=== PATIENT | female | born 1975 | race Caucasian/White ===

== ENCOUNTER 2024-12-10 10:14 | Outpatient (AMB) | payer OTHER, SELFPAY ==
--- NOTE | 2024-12-10 10:16 | MHC.PC.OV ---
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 Allergies No Known Allergies Allergy (Verified 12/10/24 10:18) Medication List - Last Reconciled 12/10/24 by Yamilet Vasquez MD albuterol sulfate 90 mcg/actuation 2 puffs inhalation Q6H PRN Tobacco use date assessed: 12/10/24 Dental Screening Dental Screen Date: 12/10/24 Did you have a dental visit in the last 12 months?: Yes Did you have a dental problem in the last 6 months where you did not have access to dental care?: No Was dental information given to patient?: Patient has dentist [facility] Medical History (Updated 12/10/24 @ 10:55 by Yamilet Vasquez MD) Hx of screening mammography Normal pelvic exam Annual physical exam Surgical History (Updated 12/10/24 @ 11:17 by Yamilet Vasquez MD) Hx of colonoscopy H/O rhinoplasty Family History Father Hypertension Diabetes Substance use disorder Mother Lung transplant recipient Autoimmune disorder Brother Mental health disorder MS (multiple sclerosis) Social History Household Members Other:: , 2 daughters (15.17), 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 1. Little interest or pleasure in doing things: not at all 2. Feeling down, depressed, or hopeless: not at all 3. Trouble falling or staying asleep, or sleeping too much: not at all 4. Feeling tired or having little energy: not at all 5. Poor appetite or overeating: not at all 6. Feeling bad about yourself - or that you are a failure or have let yourself or your family down: not at all 7. Trouble concentrating on things, such as reading the newspaper or watching television: not at all 8. Moving or speaking so slowly that other people could have noticed. Or the opposite - being so fidgety or restless that you have been moving around a lot more than usual: not at all 9. Thoughts that you would be better off or of hurting yourself in some way: not at all Total score: 0 Depression Screening Interpretation: Negative Depression Screening Done: Yes 10217 - PHQ-9 Billing: Yes Source: Developed by Drs. Nithin Maki, Ramila Mcdonnell, Giancarlo Tiwari and colleagues, with an educational yolis from [employer]. Thrive Questionnaire Date Thrive assessed: 12/10/24 I am a: Patient What is your living situation today?: I have a steady place to live Within the past 12 months, did the food you bought not last and you didn't have the money to get more?: Never true Within the past 12 months, did you worry whether your food would run out before you got money to buy more?: Never true Do you have trouble paying for medicines?: No Do you have trouble getting transportation to medical appointments?: No Do you have trouble paying your heating and electricity bill?: No Do you have trouble taking care of your child, family member or friend?: No Do you have trouble with day-to-day activities such as bathing, preparing meals, shopping, managing finances, etc.?: No Are you currently unemployed and looking for a job?: No Are you interested in more education?: No Please select the resources that you would like help with: None Currently or been in a relationship where the following occur: No concerns reported THRIVE Score: 0 AUDIT C Alcohol Use Questionnaire (AUDIT-C) 1. How often do you have a drink containing alcohol?: Never 3. How often do you have six or more drinks on one occasion?: Never Total Score: 0 HUDSON-7 AMB Questionnaire HUDSON-7 Date HUDSON - 7 assessed: 12/10/24 Feeling nervous, anxious, or on edge: 0 = Not at all Not being able to stop or control worryin = Not at all Worrying too much about different things: 0 = Not at all Trouble relaxin = Not at all Being so restless that it is hard to sit still: 0 = Not at all Becoming easily annoyed or irritable: 0 = Not at all Feeling afraid as if something awful might happen: 0 = Not at all Total HUDSON-7 score (0-4 normal; 5-9 mild; 10-14 moderate; 15-21 severe): 0 Source: Developed by Drs. Nithin Maki, Ramila Mcdonnell, Giancarlo Tiwari and colleagues, with an educational yolis from [employer]. HUDSON-7 Assessment Billing HUDSON-7 Assessment Tool: HUDSON-7 Assessment 72192 Review of Systems Const All systems reviewed & are unremarkable except as noted in HPI and below Eyes Reports no additional complaints ENT Reports no additional complaints Card Reports no additional complaints Resp Reports no additional complaints GI Reports no additional complaints Reports no additional complaints Physical exam (Primary Care) Vital Signs: Last Vital Signs Temp 98.7 F 12/10/24 10:18 Pulse 63 12/10/24 10:18 Resp 18 12/10/24 10:18 BP 114/70 12/10/24 10:18 Pulse Ox 97 12/10/24 10:18 Oxygen Delivery Method Room Air 12/10/24 10:18 BMI result Body Mass Index 30.5 Tobacco/Smoking Status: Tobacco use Status Tobacco use date assessed 12/10/24 12/10/24 10:27 Patient Tobacco Use Status Never used Tobacco 12/10/24 10:59 e-Cigarette/Vaping Use Never Used 12/10/24 10:59 Depression Screening Interpretation: Negative Thrive Assessment: Date of Thrive Assessment Date Thrive assessed 12/10/24 12/10/24 10:46 Currently or been in a relationship where the following occur: No concerns reported Const General: no acute distress HENMT Head: Yes normal to inspection Ears: TM's normal bilaterally General nose exam: Normal external nose present Extrem General: Yes no clubbing, cyanosis or edema Coding Level of Care Code New Pt Prev Care 40-64y(50160) Diagnoses Hx of colonoscopy Z98.890 Annual physical exam Z00.00 Additional Codes HUDSON-7 Assessment Billing - HUDSON-7 Assessment Tool: HUDSON-7 Assessment 69575 ([id number]) PHQ-9 - 00730 - PHQ-9 Billing: Yes ([id number]) Assessment & Plan Assessment & Plan (1) Hx of colonoscopy: Comment: polyps [address] [facility] [address] Prather repeat 5 yrs Code(s): Z98.890 - Other specified postprocedural states Category: Surgical Plan: f/u GI (2) Annual physical exam: Code(s): Z00.00 - Encounter for general adult medical examination without abnormal findings Category: Medical Plan: Well-balanced diet regular physical activity discussed with the patient. 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 Patient will return for fasting blood work Orders: Orders Lipid Panel Today Z00.00 - Encounter for general adult medical examination without abnormal findings Comprehensive [place]. Panel Fast Today Z00.00 - Encounter for general adult medical examination without abnormal findings Vitamin D 25-OH Total Today Z00.00 - Encounter for general adult medical examination without abnormal findings Complete Blood Count Auto Diff Today Z00.00 - Encounter for general adult medical examination without abnormal findings TSH reflex Free T4 Today Z00.00 - Encounter for general adult medical examination without abnormal findings UA w Microscopic Today Z00.00 - Encounter for general adult medical examination without abnormal findings
[2024-12-10 10:18] VITALS: BP 114/70; PULSE 63; RESP 18; TEMP 37.1; O2SAT 97; BMI 30.5
--- OUTSIDE RECORDS SUMMARY | 2024-12-10 11:05 | XMS_ITS | Continuity of Care Document ---
Author Name [facility] Organization [facility] Care Team Providers [employer] Name Role Phone [facility] Unavailable Unavailable Problems Combined list of problems from Department of Defense and Veterans Affairs facilities. It does not include entries that were removed or entered in error. Problem Status Onset Date Problem Type Date of Resolution Comments Source Chronic pain syndrome (SNOMED CT 003113709) Active 014 Condition Unknown Organization Chronic pain syndrome (SNOMED CT 405673357) Active Condition [facility] MYALGIA AND MYOSITIS Active Condition DoD joint pain fingers Active Condition DoD COMMON COLD Inactive Condition DoD SEBORRHEIC DERMATITIS Inactive Condition DoD SOMATIC DYSFUNCTION OF SACRUM Active Condition DoD SOMATIC DYSFUNCTION OF LUMBAR REGION Active Condition pt responded w ell to treatment today. MFR, HVLA, and ME performed. educated pt on exercises (handout given) and ways to help on plane. use motrin as needed. f/u with her new PCM as needed for pain. [facility] Cervical Pap Smear Active Condition DoD visit for: exam Active Condition Normal exam today, instructed in self-breast exam; f/u annual/prn [facility] NONALLOPATHIC LESIONS SACRAL Active Condition DoD NONALLOPATHIC LESIONS PELVIC Active Condition evaluation an d treatment with OMT done today with first visit. MFR, ME, and HVLA was done with good results. due to the chronicitiy of the problem pt likely will need few visits and recommend that she comes in 1-2wks. will be sore so can take motrin or tylenol for soreness DoD SACROILIAC REGION SPRAIN Active Condition pt with SI dysfunction. place consult to OMT and will have pt add flexeril to motrin. use and side effects d/w pt. DoD PREG FALSE LABOR ANTEPARTUM COND / PRIOR COMPLICATED DELIV Active Condition Possible early labor; advised pt to walk and return if contractions increase in intensity and/or frequency within next 2-3 hours. DoD LOW IMPLANTATION OF PLACENTA Active Condition U/S today with clear cervical os; resolved. EFW 50th percentile today DoD Supervision Of Normal First Inactive Condition Reassuring maternal/ status currently [facility] Vaccines Prophylactic Need Against Influenza Inactive Condition DoD ASYMPTOMATIC BACTERURIA Active Condition will check for eradication/NORY DoD NORMAL CHECKUP - SECOND TRIMESTER Inactive Condition Isolated elevat ed systolic BP normal on manual; neg proteinuria. Do not suspect PIH, but reviewed precautions with patient. Will check GTT this week due to glucose in urine. Will repeat u/s in 3rd trimester to follow low-lying placenta. [facility] lower back pain Active Condition mild disk dysfunction likely.Goals: pt education - achieved today, reduce pain to allow painfree bending and sitting - 4 weeks, reduce physical stresses of - 9 months.Plan: HEP of sitting with lumbar roll, extension in standing and prone, knees to chest and rotations left and right and pelvic tilts. Pt provided handouts and instructions in all. DoD SCIATICA Active Condition Recommende d stretching, pool exercises, and yoga. Will have pt see physical therapy as well. No neuro signs/sx currently [facility] NORMAL CHECKUP - INITIAL Active Condition EDC 06/22/07 by Enrique ZAMBRANO and scan today DoD bloating Inactive Condition No signs/s x of pathologic etiology, will treat symptomatically DoD visit for: administrative purpose Active Condition Pt encounter linked to original appt time to allow for correct coding purposes. [facility] Ed Initial Visit Description Of Care Plan Active Condition No other concer ns at this time. Patient asked to follow up as scheduled with the provider for New OB medical screen. [facility] Patient Ed Facilitate Preg Discuss Timing Of Peak Fertility Inactive Condition Discussed strategies for timing intercourse; ovulation kits given; rec trial of BBT and HO given. Complete labs today; Ordered semen anaylsis for husban.F/u in 3-4 months for re-eval; if no success; will refer to OB for eval. [facility] FATIGUE Active Condition Usure of etiology; discussed mild depression, but will follow before deciding if treatment needed. F/u for re-eval DoD VERTIGO Active Condition Trial of m eclizin and HO on excersises for vertigo provided DoD MIGRAINE HEADACHE Active Condition Trial of zomig at onset. Will re-eval in 1 month DoD cough Inactive Condition secondary to prior viral infection that has since resolved DoD FOLLICULITIS Active Condition Rec. to pical treatment for now. If no better, will start oral abx. [facility] ROUTINE GYNECOLOGICAL EXAM WITH CERVICAL PAP SMEAR Active Condition Rec. starting P NV since desiring to become . Discussed diet/excersise. Rec. lab test. F/u in 6 months if still not for re-eval. Discussed timing strategies, etc. DoD pain in the leg (below the knee) Active Condition May represe nt restless leg syndrome, alleved well with NSAIDSper patient. Will prescribe trial of Feldene (compliance is good) and followup in one month. [facility] Allergies, Adverse Reactions, Alerts Combined list of allergies from Department of Defense and Veterans Affairs facilities. It does not include entries that were removed or entered in error. Substance Category Reaction Severity Reaction type Status Date Reported Comments Source NO OUTPUT FOR NCID [id number] Drug allergy (disorder) active 09/04/2007 [facility] Immunizations Combined list of available immunizations from the Department of Defense and Veterans Affairs facilities. Immunization Series Date Given Administered By Site Reaction Lot Number CVX Code Drug Oncology Nurse Status Comments Source influenza virus vaccine, whole virus 1 2012 BRENDA JONES [id number] 4P 16 [employer]. (NOV) complet ed influenza virus vaccine, whole virus [facility] influenza virus vaccine, live, attenuated, for intranasal use 1 2011 ALISHA CEDEÑO [id number] [employer] (MED) complet ed influenza virus vaccine, live, attenuate d, for intranasa l use DoD influenza virus vaccine, live, attenuated, for intranasal use 1 2009 CHARLES CARMONA [id number] [employer] (MED) complet ed influenza virus vaccine, live, attenuate d, for intranasa l use DoD influenza virus vaccine, live, attenuated, for intranasal use 1 2007 HANNY MCCARTY [id number] 111 [employer] (MED) complet ed influenza virus vaccine, live, attenuate d, for intranasa l use DoD influenza virus vaccine, split virus (incl. purified surface antigen)-reti red CODE 1 2006 Unknown, Provider [id number] [employer] ([facility]) complet ed influenza virus vaccine, split virus (incl. purified surface antigen)- retired CODE DoD Vital Signs Combined list of inpatient and outpatient Vital Signs from Department of Defense and Veterans Affairs, ranging from 12 months to all on record, depending upon the facility. Vital Sign Value Date Comments Source Systolic Blood Pressure 117 mm[Hg] 07/25/19 12 10:36:59 [facility] More [facility] [employer] Diastolic Blood Pressure 69 mm[Hg] 07/25/2011 10:36:59 [facility] or More [facility] [employer] Systolic Blood Pressure 134 mm[Hg] 07/18/19 14 14:54:46 [facility] More [facility] [employer] Diastolic Blood Pressure 65 mm[Hg] 07/17/2013 14:54:46 One or More [facility] Facilities [employer] Encounters Combined list of: 1) Encounters from Department of Veterans Affairs facilities going backup to the last 18 months, not all VA inpatient encounters are included; 2) Encounters from the Department of [facility] facilities going backup to 280 months. Location Location Details Encounter Type Encounter Number Reason For Visit Attending Provider ADM Date DC Date Status Disposition Source [facility] OUTPATIENT [id number] lower leg pain DEVIKA KEARNEY 11/07 [facility]ased w/o Limitations [facility] OUTPATIENT [id number] repeat pap SEDA ACEVEDO 03/27 [place] w/o Limitations [facility] [facility] OUTPATIENT [id number] persist ant cough DENA STANLEY 06/05 Released w/o Limitations [facility] [place] [facility] OUTPATIENT [id number] DIZINES S AND NAUSEA SEDA ACEVEDO 06/26 [place] w/o Limitations [facility] [place] [facility] OUTPATIENT [id number] talk about getting pregnan t SEDA ACEVEDO 07/20 [place] w/o Limitations [facility] [place] [facility] OUT[facility] [id number] nob MAEVE Cyr 10/17 [place] w/o Limitations [facility] TELE CONSULT [id number] notify pt of med in pharmac y MAEVE LIZARRAGA 10/23 [facility] [facility] OUTPATIENT [id number] TRISTA Banks 12/07 Rele[place] w/o Limitations [facility] OUTPATIENT [id number] DEMI NORIEGA 12/15 Rele[place] w/o Limitations [facility] OUTPATIENT [id number] TRISTA Sims 01/08 Released w/o Limitations [facility] TELE CONSULT [id number] test results SONIA PAZ 02/01 [facility] [facility] OUTPATIENT [id number] TRISTA Sims 02/21 [place]/o Limitations [facility] [facility] OUTPATIENT [id number] NICKO Juan 03/07 [place]/o Limitations [facility] [place] [facility] OUTPATIENT [id number] TRISTA Sims 04/09 Released w/o Limitations [facility] OUTPATIENT [id number] TRISTA Sims 05/23 [place]/o Limitations [facility] OUTPATIENT [id number] TRISTA Sims 05/31 Released [place]/o Limitations [facility] OUTPATIENT [id number] TRISTA Sims 06/07 Released w/o Limitations [facility] OUTPATIENT [id number] TRISTA Sims R 06/14 Released w/o Limitations [facility] OUTPATIENT [id number] TRISTA Sims R R 06/20 Released w/o Limitations [facility] TELE CONSULT [id number] NISHANT Wilkinson 06/25 [facility] [facility] OUTPATIENT [id number] R/O Labor TRISTA ASHTON R 06/27 Released w/o Limitations [facility] DIRECT TO [facility] FROM OTHER THAN ER OR [facility] [id number] TRISTA ASHTON R 06/27 [place] [facility] OUTPATIENT [id number] back pain TINA GREENWOOD NMN 07/31 Released w/o Limitations [facility] [facility] OUTPATIENT [id number] walk-in per M.O NEETA MEEHAN 08/13 Released w/o Limitations [facility] [place] [facility] OUTPATIENT [id number] manipul ation MISTIHIKATIE LOPESA NMN 08/13 Released w/o Limitations [facility] [facility] OUTPATIENT [id number] 6 wks post TRISTA ASHTON R 08/15 Released w/o Limitations [facility] OUTPATIENT [id number] manipul ation PATELHINKL E, TINA NMN 08/22 Released w/o Limitations [place] [facility] [facility] [place] [facility] OUTPATIENT [id number] SI joint dysfunc tion PATELHINKL E, TINA NMN 09/03 Released w/o Limitations [place] [facility](Immuniz ation [facility]) OUTPATIENT [id number] flu HANNY MCCARTY Didier 04/16 Released w/o Limitations [facility](Imm unizati on [facility]) [place] [facility] [facility] TELE CONSULT [id number] per SABRINA DENG 03/27 [place] [facility](Immuniz ation NM[facility]) OUTPATIENT [id number] Adult Flu CHARLES CARMONA 04/05 Released w/o Limitations [facility](Imm unizati on NMCP) [facility]) OUTPATIENT [id number] TO/ hair bugs x2days OSWALD ZAMORANO 12/22 Released w/o Limitations [facility]( [facility]) [facility] OUTPAT[facility] [id number] Notes Entered by: FARRUKH CEDEÑO 13 Apr 2012 1023 ------- ------- ------- ------- -- Fluwangst ALISHA CEDEÑO 04/13 Released w/o Limitations [facility] Abdirashid [place] [facility]) OUTPATIENT [id number] ROGER/ SINUS INFECTI ON X1W MANUEL PAZ 06/13 Released w/o Limitations [facility]( [facility]) [facility]) OUTPATIENT [id number] DD/CONS ULT ON ARTHRIT IS/RESEARCH MANAGEMENT ASSOCIATE ALESSIA LEG PAIN MELVIN DANIELS 04/08 Released w/o Limitations [facility]( [facility]) [facility] Team [facility]) OUTPATIENT [id number] DD/TEST RESULTS MELVIN DANIELS 04/23 Released w/o Limitations [facility]( [facility]) [facility] [id number] Notes Entered by: BRENDA JONES 23 Apr 2013 1524 ------- ------- ------- ------- -- BRENDA Rodriguez 04/23 Released w/o Limitations [facility]( [facility]) [facility]) OUTPATIENT [id number] DD/RESEARCH MANAGEMENT ASSOCIATE ALESSIA PAIN IN BOTH LEGS x10Y CONSTAN TLY MELVIN DANIELS 05/28 Released w/o Limitations [facility]( [facility]) [facility]) OUTPATIENT [id number] DD/ ARTHRIT IS MED CHECK MELVIN DANIELS 06/19 Released w/o Limitations [facility]( [facility]) [facility]) OUTPATIENT [id number] DD/LEG PAIN RECHECK MELVIN DANIELS 09/25 Released w/o Limitations [facility]( [facility]) Procedures Combined list of: 1) Procedures from Department of Veterans Affairs facilities going back up to thelast 18 months, not all VA non-surgical procedures are included; 2) All procedures from the Department of Defense facilities. Procedure Procedure Type Code Date Perfomer Comments Sourc e No data available for this section Ambul[facility] ry Pharmacy Influenza Split Virus Vacc Age 3+ Years IM Preservative Free 013 BRENDA JONES [facility] Immunization Administration One Vaccine Immunization Administration One Vaccine 20935 013 BRENDA JONES [facility] Influenza Virus Vaccine Live Intranasal 012 ALISHA CEDEÑO [facility] Immunization Admin By Intranasal / Oral Route One Vaccine Immunization Admin By Intranasal / Oral Route One Vaccine 35904 012 ALISHA CEDEÑO [facility] Influenza Virus Vaccine Live Intranasal 010 SHELIA CARMONAYA Spencer [facility] Immunization Admin By Intranasal / Oral Route One Vaccine Immunization Admin By Intranasal / Oral Route One Vaccine 46735 010 CHARLES CARMONA [facility] Influenza Virus Vaccine Live Intranasal 008 HANNY MCCARTY [facility] Immunization Admin By Intranasal / Oral Route One Vaccine Immunization Admin By Intranasal / Oral Route One Vaccine 43169 008 HANNY MCCARTY Osteopathic Manip Treatment (OMT) 1-2 Body Regions Involved Osteopathic Manip Treatment (OMT) 1-2 Body Regions Involved 93594 008 TINA MURCIA Osteopathic Manip Treatment (OMT) 1-2 Body Regions Involved Osteopathic Manip Treatment (OMT) 1-2 Body Regions Involved 77661 008 TINA MURCIA Obstetrical Services Care Visit Obstetrical Services Care Visit 0503F 008 MOSES [place] Screening papanicolaou smear; obtaining, preparing and conveyance of cervical or vaginal smear to laboratory 008 MOSES [place] Osteopathic Manip Treatment (OMT) 1-2 Body Regions Involved Osteopathic Manip Treatment (OMT) 1-2 Body Regions Involved 20965 008 TINA MURCIA OB Services Antepartum Care Only Subsequent Single Visit OB Services Antepartum Care Only Subsequent Single Visit 0502F 008 [facility]ES [place] Non-Stre Test (___ 0,2) Non-Stress Test (___ 0,2) 03636 008 MOSES [place] Ultrasound Obstetric Limited Evaluation Ultrasound Obstetric Limited Evaluation 01480 008 MOSES [place] OB Services Antepartum Care Only Subsequent Single Visit OB Services Antepartum Care Only Subsequent Single Visit 0502F 008 MOSES [place] OB Services Antepartum Care Only Subsequent Single Visit OB Services Antepartum Care Only Subsequent Single Visit 0502F 008 MOSES ASHTON OB Services Antepartum Care Only Subsequent Single Visit OB Services Antepartum Care Only Subsequent Single Visit 0502F 008 MOSES [place] OB Services Antepartum Care Only Subsequent Single Visit OB Services Antepartum Care Only Subsequent Single Visit 0502F 008 MOSES [place] OB Services Antepartum Care Only Subsequent Single Visit OB Services Antepartum Care Only Subsequent Single Visit 0502F 008 [place] [place] OB Services Antepartum Care Only Subsequent Single Visit OB Services Antepartum Care Only Subsequent Single Visit 0502F 007 [facility] [place] Influenza Split Virus Vaccine Age 3+ Years Intramuscular 007 NICKO BURNS [facility] Immunization Administration One Vaccine Immunization Administration One Vaccine 15597 007 NICKO BURNS [facility] OB Services Antepartum Care Only Subsequent Single Visit OB Services Antepartum Care Only Subsequent Single Visit 0502F 007 [place]ES [place] OB Services Antepartum Care Only Subsequent Single Visit OB Services Antepartum Care Only Subsequent Single Visit 0502F [address]Supervised Services Provision Of Educational Supplies -Supervised Services Provision Of Educational Supplies 43783 007 DEMI JUNG [facility] Physical Medicine Physical Therapy Evaluation Physical Medicine Physical Therapy Evaluation 21053 007 DEMI JUNG Cervical Pap Smear Cervical Pap Smear 26730 10/07 007 MOSES [place] Transabd Ultrasound W/ Exam Single Or First Gestation Transabd Ultrasound W/ Exam Single Or First Gestation 73358 007 MOSES [place] OB Services Antepartum Care Only First Visit, With Report OB Services Antepartum Care Only First Visit, With Report 0500F 007 [place] [place] Pulse Oximetry Pulse Oximetry 09387 007 DENA STANLEY [facility] Cervical Pap Smear Cervical Pap Smear 96202 27/06 006 SEDA ACEVEDO [facility] INFLUENZA VIRUS VACCINE, TRIVALENT, LIVE (LAIV3), FOR INTRANASAL USE 010 [facility] HANDLING AND/OR CONVEYANCE OF SPECIMEN FOR TRANSFER FROM THE OFFICE TO A LABORATORY 009 [facility] INFLUENZA VIRUS VACCINE, TRIVALENT, LIVE (LAIV3), FOR INTRANASAL USE 008 [facility] DETERMINATION OF REFRACTIVE STATE 003 [facility] EXCISION, BENIGN LESION INCLUDING MARGINS, EXCEPT SKIN TAG (UNLESS LISTED ELSEWHERE), TRUNK, ARMS OR LEGS; EXCISED DIAMETER 0.5 CM OR LESS 003 [facility] INFLUENZA VIRUS VACCINE, TRIVALENT (IIV3), SPLIT VIRUS, PRESERVATIVE FREE, 0.5 ML DOSAGE, FOR INTRAMUSCULAR USE 013 [facility] INFLUENZA VIRUS VACCINE, TRIVALENT, LIVE (LAIV3), FOR INTRANASAL USE 012 [facility] INFLUENZA VIRUS VACCINE, TRIVALENT (IIV3), SPLIT VIRUS, PRESERVATIVE FREE, 0.5 ML DOSAGE, FOR INTRAMUSCULAR USE 011 DoD OSTEOPATHIC MANIPULATIVE TREATMENT (OMT); 1-2 BODY REGIONS INVOLVED 008 [facility] OSTEOPATHIC MANIPULATIVE TREATMENT (OMT); 1-2 BODY REGIONS INVOLVED 008 [facility] SCREENING PAPANICOLAOU SMEAR; OBTAINING, PREPARING AND CONVEYANCE OF CERVICAL OR VAGINAL SMEAR TO LABORATORY 008 [facility] OSTEOPATHIC MANIPULATIVE TREATMENT (OMT); 1-2 BODY REGIONS INVOLVED 008 [facility] OTHER ARTIFICIAL RUPTURE OF MEMBRANES 008 [facility] INJECTION OF RH IMMUNE GLOBULIN 008 [facility] POSTOPERATIVE FOLLOW-UP VISIT, NORMALLY INCLUDED IN THE SURGICAL PACKAGE, INDICATE THAT EVALUATION & MANAGEMENT SERVICE WAS PERFORMED DURING A POSTOPERATIVE PERIOD REASON RELATED ORIGINAL PROCEDURE 008 DoD POSTOPERATIVE FOLLOW-UP VISIT, NORMALLY INCLUDED IN THE SURGICAL PACKAGE, INDICATE THAT EVALUATION & MANAGEMENT SERVICE WAS PERFORMED DURING A POSTOPERATIVE PERIOD REASON RELATED ORIGINAL PROCEDURE 008 [facility] VAGINAL DELIVERY ONLY (WITH OR WITHOUT EPISIOTOMY AND/OR FORCEPS); 008 [facility] SUBSEQ CARE VISIT () [EXCLS:PATIENTS WHO ARE SEEN FOR A CONDITION UNREL TO / CARE (EG,AN UP RESPIR INFECT;PATIENTS SEEN FOR CONSULTATION ONLY,NOT FOR CONT CARE)] [facility] SUBSEQ CARE VISIT () [EXCLS:PATIENTS WHO ARE SEEN FOR A CONDITION UNREL TO / CARE (EG,AN UP RESPIR INFECT;PATIENTS SEEN FOR CONSULTATION ONLY,NOT FOR CONT CARE)] [facility] SUBSEQ CARE VISIT () [EXCLS:PATIENTS WHO ARE SEEN FOR A CONDITION UNREL TO / CARE (EG,AN UP RESPIR INFECT;PATIENTS SEEN FOR CONSULTATION ONLY,NOT FOR CONT CARE)] [facility] SUBSEQ CARE VISIT () [EXCLS:PATIENTS WHO ARE SEEN FOR A CONDITION UNREL TO / CARE (EG,AN UP RESPIR INFECT;PATIENTS SEEN FOR CONSULTATION ONLY,NOT FOR CONT CARE)] [facility] SUBSEQ CARE VISIT () [EXCLS:PATIENTS WHO ARE SEEN FOR A CONDITION UNREL TO / CARE (EG,AN UP RESPIR INFECT;PATIENTS SEEN FOR CONSULTATION ONLY,NOT FOR CONT CARE)] [facility] SUBSEQ CARE VISIT () [EXCLS:PATIENTS WHO ARE SEEN FOR A CONDITION UNREL TO / CARE (EG,AN UP RESPIR INFECT;PATIENTS SEEN FOR CONSULTATION ONLY,NOT FOR CONT CARE)] [facility] SUBSEQ CARE VISIT () [EXCLS:PATIENTS WHO ARE SEEN FOR A CONDITION UNREL TO / CARE (EG,AN UP RESPIR INFECT;PATIENTS SEEN FOR CONSULTATION ONLY,NOT FOR CONT CARE)] [facility] INFLUENZA VIRUS VACCINE, TRIVALENT (IIV3), SPLIT VIRUS, 0.5 ML DOSAGE, FOR INTRAMUSCULAR USE [facility] SUBSEQ CARE VISIT () [EXCLS:PATIENTS WHO ARE SEEN FOR A CONDITION UNREL TO / CARE (EG,AN UP RESPIR INFECT;PATIENTS SEEN FOR CONSULTATION ONLY,NOT FOR CONT CARE)] [facility] SUBSEQ CARE VISIT () [EXCLS:PATIENTS WHO ARE SEEN FOR A CONDITION UNREL TO / CARE (EG,AN UP RESPIR INFECT;PATIENTS SEEN FOR CONSULTATION ONLY,NOT FOR CONT CARE)] [facility] PHYSICAL THERAPY EVALUATION [facility] CYTOPATHOLOGY, SMEARS, CERVICAL OR VAGINAL, UP TO THREE SMEARS; SCREENING BY WIRE HARNESS ASSEMBLER UNDER PHYSICIAN SUPERVISION [facility] NONINVASIVE EAR OR PULSE OXIMETRY FOR OXYGEN SATURATION; SINGLE DETERMINATION [facility] CYTOPATHOLOGY, SMEARS, CERVICAL OR VAGINAL, UP TO THREE SMEARS; SCREENING BY WIRE HARNESS ASSEMBLER UNDER PHYSICIAN SUPERVISION [facility] COLPOSCOPY OF THE CERVIX INCLUDING UPPER/ADJACENT VAGINA; [facility] SCREENING PAPANICOLAOU SMEAR; OBTAINING, PREPARING AND CONVEYANCE OF CERVICAL OR VAGINAL SMEAR TO LABORATORY [facility] REPLACEMENT OF CONTACT LENS DoD Social History Combined list of available smoking, tobacco, and other social history from [facility] facilities. Social History Type Response Date Comment Sour e Sex Representation Female (finding) 06/13/2023 Unknown Organization Sexual Orientation [facility] Gender identity [facility] This section is an empty social history section. [facility] Assessment and Plan Combined list of future care activities from [facility] Defense and [facility] facilities (e.g., assessment and plan notes, appointments, orders, and referrals). Additional future care activities may be listed in the Plan of Care section. Result Assessment and Plan Date Source Assessment and Plan No data available for this section 12/10/2024 [facility] Functional Status Combined list of recent functional and cognitive assessments recorded at [facility] Functional [place] Measurement (FIM) Scale: 1 = Total Assistance (Subject = 0% +), 2 = Maximal Assistance (Subject = 25% +), 3 = Moderate Assistance (Subject = 50% +), 4 = Minimal Assistance (Subject = 75% +), 5 = Supervision, 6 = Modified [place] (Device), 7 = Complete [place] (Timely, Safely). Assessment Date/Time Source Assessment Type Assessment Skill Assessment Score Assessment Details No data available for this section
--- OUTSIDE RECORDS SUMMARY | 2024-12-10 11:06 | XMS_ITS | Data Portability ---
Author Organization [facility] [address] Address [address] [place] [address] Assessment No assessment recorded. Plan of Treatment Reminders Order Date Submit Date Provider Last Modified By Organization Details Last Modified Time Details Appointments None recorded. Lab None recorded. Referral None recorded. Procedures None recorded. Surgeries None recorded. Imaging None recorded. Medication Orders prednisone 10 mg tablet 2022 023 [id number], [address], [place], [id number], 3 13:30:08 hydroxyzine HCl 25 mg tablet 2022 023 [facility][id number], [address], [place], [id number], 3 13:30:10 Patient TargetsNo targets recorded. Patient Instructions Encounter Date Encounter Id Patient Instructions Last Modified By Organization Details Last Modified Time 11/25/2022 [id number] hives: care instructions [email or web address] Not available 11/25/2022 13:29:59 Get plenty of rest. Drink plenty of fluids/stay hydrated. May use OTC oral antihistamines such as benadryl, Claritin, zyrtec, to help relieve the itching as directed. May use topical anti itch creams such as benadryl, calamine lotion to small blisters and oozing skin to help dry out the rash. Do not open the blisters as this may predispose the skin to infection. Stay cool/dry, apply cool compresses to the itchy areas may be comforting. Refrain from Hot showers. F/u with your pcp as needed. F[facility]u with [facility] in [facility]-2 weeks as needed. Go to ER for any sudden changes. [email or web address] Not available 11/25/2022 13:29:58 Reason for Referral None Reported. Problems Name Problem SNOMED Code Status Onset Date Resolution Date Notes Provider Name and Address Organization Details Recorded Time Asthma [id number] Active NANCY Matthews [facility] 11/25/2022 12:53:25 Problem Notes None recorded. Procedures Surgical History Date Name Laterality Status Provider Name and Address Organization Details Recorded Time Reconstruction of nose completed MICHEL CRUZ - [facility] 11/25/2022 12:54:25 Imaging Results None recorded. Procedure Notes None recorded. Medical Equipment None Reported. Allergies No known drug allergies Medications Name Sig Start Date Stop Date Status Note LastModified by Organization Details LastModified Time prednisone 10 mg tablet Take 6 tablets every day by oral route in the morning for 3 days. 2022 active Not Available Not Available Not Avai lable hydroxyzine HCl 25 mg tablet Take 1 tablet 3 times a day by oral route as needed for 7 days. 2022 active Not Available Not Available Not Avai lable albuterol sulfate HFA 90 mcg/actuatio n aerosol inhaler active Not Available Not Available Not Available Gavilyte-C 240 gram-22.72 gram-6.72 gram-5.84 gram oral solution 11/25 completed Not Available Not Available Not Available Vitals Date Recorded Body height Body mass index (BMI) Body weight Pain severity - 0-10 verbal numeric rating [Score] - Reported Respiratory rate Oxygen saturation Oxygen saturation in Arterial blood by Pulse oximetry Heart rate Body temperature Systolic And Diastolic Provider Name and Address Organization Details Last Updated DateTime 3 160.02 cm 29.2 kg/m2 59747.7 4 g 6 17 /min 98 % 98 % 65 /min 97.9 [degF] 109/71 mm[Hg] MICHEL Ponce [facility] 3 12:55:50 Social History Question Answer Notes LastModified by Organizat ion Details LastModified Time Tobacco Smoking Status Never Smoker MICHEL HURD-[place] null, PA - [facility] 11/25/2022 12:54:05 Have You Had Direct Contact, Or Contact During Intimacy, With Monkeypox Rash, Scabs, Or Body Fluids From A Person With Monkeypox? No Information not available 11/25/2022 Have You Recently Traveled Abroad? No Information not available 11/25/2022 Sex: Unknown Functional Status Question Answer Note LastModified by Organizat ion Details LastModified Time Do you use any illicit or recreational drugs? No Information not available 11/25/2022 Do you or have you ever used any other forms of tobacco or nicotine? No Information not available 11/25/2022 What is your level of alcohol consumption? None Information not available 11/25/2022 Mental Status None recorded. Family History Relationship Description Onset Age of this Age Resolved Age Notes LastModified by Organization Details LastModified Time Brother Multiple sclerosis Not available 12:53:34 Father Heart disease 60 Not available 12:53:44 Mother Disorder of lung Not available 12:53:57 Medical History No medical history recorded. Gynecological History Statement/Question Response Date of LMP 11/14/2022 Is there any chance of ? No LMP Approximate Obstetrics History GPAL:G 0 P 0 0 0 0 Immunizations Vaccine Type Date Status Note Provider Nam e and Address Organization Details Recorded Time Influenza, MDCK, quadrivalent, PF 01/21/2022 completed MICHEL HURD-[place] null, PA - [facility] 11/25/2022 12:53:07 COVID-19, mRNA, LNP-S, PF, 30 mcg/0.3 mL dose 02/19/2021 completed MICHEL HURD-[place] null, PA - [facility] 11/25/2022 12:53:07 COVID-19, mRNA, LNP-S, PF, 30 mcg/0.3 mL dose 03/12/2021 completed MICHEL CHUNG null, PA - [facility] 11/25/2022 12:53:07 COVID-19, mRNA, LNP-S, PF, 30 mcg/0.3 mL dose, shaniqua-sucrose 10/19/2021 completed NANCY Cooper - [facility] 11/25/2022 12:53:07 Tdap 10/01/2014 completed NANCY Cooper - [facility] 11/25/2022 12:53:07 Past Encounters Encounter ID Performer Location Encounter Start Date Encounter Closed Date Diagnosis/Indication Diagnosis SNOMED-CT Code Diagnosis ICD10 Code Diagnosis Note [id number] [facility] [address] [address] [facility] [address] [place] [address] 01/04/2020 10:18:39 01/04/2020 10:19:33 [id number] [place] [address] [place] [address] 11/25/2022 12:36:39 11/25/2022 13:30:55 Allergic contact dermatitis caused by urushiol from [place] poison dona 868569766 L23.7 Health Concerns Section Related Observation LastModified by Organization Detai ls LastModified Time None Recorded Concern Status LastModified by Organization Details LastModified Time None Recorded Advance Directives Directive None Recorded Payers Insurance Date Sequence Insurance Name Policy Number Policy Borrero Covered Member ID Borrero Member ID Guarantor Name 11/25/2022 1 [facility] [place] () Luisa Lin [id number] Luisa Lin OBGyn Episode No OBEpisode recorded.
--- OUTSIDE RECORDS SUMMARY | 2024-12-10 11:06 | XMS_ITS | Encounter Summary ---
Author Organization [facility] Address [address] [place] [address] Care Team Providers Care Marketing Analytics Specialist Name Role Phone Amydavid Oscarjacque Primary Care Provider [phone] Encounter Details Date Type Department Care Team (Latest Contact Info) Description 07/10/2024 Lab Requisition [facility] - Main Lab [address] [facility] [place] [phone] Sheri Arriola MD [address] [facility] [address] [place] [phone] Encounter for gynecological examination (general) (routine) without abnormal findings Social History Tobacco Use Types Packs/Day Years Used Date Smoking Tobacco: Never Smokeless Tobacco: Never Alcohol Use Standard Drinks/Week Comments Yes 0 (1 standard drink = 0.6 oz pur e alcohol) Comments No Sex and Gender Information Value Date Recorded Sex Assigned at Female 05/23/2024 4:53 PM EST Legal Sex Female 1:07 AM EST Gender Identity Female 05/23/2024 4:53 PM EST Sexual Orientation Straight 05/23/2024 4: 53 PM EST documented as of this encounter Plan of Treatment Not on file documented as of this encounter Procedures Procedure Name Priority Date/Time Associated Diagnosis Comments HPV WITH REFLEX GENOTYPE Routine 07/09/2024 12:00 AM EST Encounter for gynecological examination (general) (routine) without abnormal findings PAP SMEAR Routine 07/09/2024 12:00 AM EST Encounter for gynecological examination (general) (routine) without abnormal findings documented in this encounter Results * HPV with reflex genotype (07/09/2024 12:00 AM EST) HPV Negative Negative LAB MICROBIOLOGY METHOD 07/17/2024 3:03 PM EST [facility] Brushing/Spatula Cervix uteri structure / Unknown 07/09/2024 07/16/2024 9:30 AM EST us Sheri Arriola MD LAB MOLECULAR DIAGNOSTIC S ORDERABLES Final Result [facility] [address] [place] [address], * (ABNORMAL) Pap smear (07/09/2024 12:00 AM EST) Interpretation Atypical squamous cells of undetermined significance(A) 07/16/2024 9:30 AM [facility] General Categorization Epithelial cell abnormality, see interpretation 07/16/2024 9:30 AM [facility] LMP 06/10/2024 07/16/2024 9:30 AM [facility] Specimen Adequacy Satisfactory for evaluation, endocervical/tra nsformation zone component present 07/16/2024 9:30 AM [facility] Pap Methodology Liquid Based Pap Test 07/16/2024 9:30 AM [facility] Disclaimer The Pap test is a screening test which carries an inherent false negative rate. These test results should be correlated with the patient's clinical findings and history. This Pap test was processed using an automated screening system. Technical cytopathology services provided by [facility], at [address] [place] [id number] (CLIA # [id number]/Rosalba Haque MD, Brickmason Helper.) 07/16/2024 9:30 AM EST [facility] Console Pap Interpretation Reported 07/16/2024 9:30 AM EST [facility] Brushing/Spatula Cervix uteri structure / Unknown 07/09/2024 07/10/2024 8:11 AM EST us Sheri Arriola MD LAB CYTOLOGY ORDERABLES Final Result [facility] [address] [place] [address], documented in this encounter Visit Diagnoses Diagnosis Encounter for gynecological examination (general) (routine) without abnormal findings documented in this encounter Care Teams Marketing Analytics Specialist Relationship Specialty Start Date End Date Ck Hester DO [address] [place] [id number] PCP - General Internal Medicine 12/31/21 documented as of this encounter
== END 2024-12-10 11:09 | disposition home or self-care (01) ==
LOC: HO.HMCC 10:15
PROVIDERS: Visit Provider Internal Medicine
DX: Z98.890 Other specified postprocedural states (principal); Z00.00 Encounter for general adult medical examination without abnormal findings

== ENCOUNTER → 2024-12-10 10:14 | Outpatient (BNVA) | payer OTHER, SELFPAY | PROVIDERS: Visit Provider Internal Medicine | DX: Z00.00 Encounter for general adult medical examination without abnormal findings (principal); Z98.890 Other specified postprocedural states | CPT/HCPCS: 96127 ==

== ENCOUNTER 2024-12-21 06:48 | Outpatient (REF) | payer OTHER, SELFPAY ==
--- OUTSIDE RECORDS SUMMARY | 2024-12-21 06:51 | XMS_ITS | Encounter Summary ---
Author Organization [facility] Address [address] [place] [address] Care Team Providers Care Mold Filler And Drainer Name Role Phone Amydavid Oscarjacque Primary Care Provider [phone] Encounter Details Date Type Department Care Team (Latest Contact Info) Description 07/10/[address] [facility] - Main Lab [address] [facility] [place] [phone] Sheri Arriola MD 299 [facility] [address] [place] [phone] Encounter for gynecological examination (general) (routine) without [...] LAB MICROBIOLOGY METHOD 07/17/2024 3:03 PM EST [facility] Brushing/Spatula Cervix uteri structure / Unknown 07/09/2024 07/16/2024 9:30 AM EST us Sheri Arriola MD LAB MOLECULAR DIAGNOSTIC S ORDERABLES Final Result [facility] [address] [place] [address], * (ABNORMAL) Pap smear (07/09/2024 12:00 AM EST) Interpretation Atypical squamous cells of undetermined significance(A) 07/16/2024 9:30 AM [facility] General Categorization Epithelial cell abnormality, see interpretation 07/16/2024 9:30 AM [facility] LMP 06/10/2024 07/16/2024 9:30 AM [facility] Specimen Adequacy Satisfactory for evaluation, endocervical/tra nsformation zone component present 07/16/2024 9:30 AM [facility] Pap Methodology Liquid Based Pap Test 07/16/2024 9:30 AM [facility] Disclaimer The Pap test is a screening test which carries an inherent false negative rate. These test results should be correlated with the patient's clinical findings and history. This Pap test was processed using an automated screening system. Technical cytopathology services provided by [facility], at [address] [place] [address] (CLIA # [id number]/Rosalba Haque MD, Torpedo Worker.) 07/16/2024 9:30 AM EST [facility] Console Pap Interpretation Reported 07/16/2024 9:30 AM EST [facility] Brushing/Spatula Cervix uteri structure / Unknown 07/09/2024 07/10/2024 8:11 AM EST us Sheri Arriola MD LAB CYTOLOGY ORDERABLES Final Result [facility] [address] [place] [address], documented in this encounter Visit Diagnoses Diagnosis Encounter for gynecological examination (general) (routine) without abnormal findings documented in this encounter Care Teams Mold Filler And Drainer Relationship Specialty Start Date End Date Ck Hester DO [address] [place] [address] PCP - General Internal Medicine 12/31/21 documented as of this encounter
[2024-12-21 11:44] LABS: MANUAL DIFF FLAG NO
[2024-12-21 11:56] LABS: Hematocrit 39.5 % (37.0-47.0); Hemoglobin 13.0 g/dl (12.0-16.0); Imm Gran Abs Auto 0.03 X10*3/uL (0.00-0.03); Imm Gran Pct Auto 0.5 % (0.0-0.4); Lymphocytes Absolute Auto 2.8 X10*3/uL (1.2-4.9); Mean Corpuscular HGB Conc 32.9 g/dl (31.0-35.0); Mean Corpuscular Hemoglobin 28.9 pg (27.0-33.0); Mean Corpuscular Volume 87.8 fL (80.0-98.0); NRBC Abs Auto 0.000 X10*3/uL (0.0-0.012); NRBC Pct Auto 0.0 /100WBC (0.0-0.2); Platelet Count 280 X10*3/uL (160-400); Red Blood Count 4.50 X10*6/uL (4.20-5.50); White Blood Count 5.8 X10*3/uL (4.8-10.8)
[2024-12-21 12:14] LABS: Appearance Urine Clear; Glucose Urine UA Negative (Negative); PH 6.0 (5.0-9.0); Specific Gravity - Urine 1.020 (1.005-1.025); UMIC TRIGGER UA YES
[2024-12-21 12:59] LABS: Alanine Aminotransferase 19 U/L (0-31); Albumin Level 4.4 g/dL (3.5-5.0); Anion Gap 12 (12-20); Aspartate Amino Transferase 25 U/L (5-31); Blood Urea Nitrogen 16 mg/dL (9-16); Calcium 9.0 mg/dL (8.4-10.2); Carbon Dioxide 25 mmol/L (22-29); Chloride 109 mmol/L (96-108); Cholesterol 183 mg/dL (<200); Estimated Glomerular Filt Rate > 60; HDL Cholesterol 54 mg/dL (>40); Potassium 4.3 mmol/L (3.3-5.1); Sodium 142 mmol/L (135-145); Total Protein 6.9 g/dL (6.5-8.0); Triglycerides 84 mg/dL (<150)
[2024-12-21 13:11] LABS: Alkaline Phosphatase 54 U/L (39-117)
== END 2024-12-21 06:49 | disposition home or self-care (01) ==
LOC: HO.HMGCLDS 06:48
PROVIDERS: PCP Internal Medicine; Visit Provider Internal Medicine
DX: Z00.00 Encounter for general adult medical examination without abnormal findings (principal); Z13.6 Encounter for screening for cardiovascular disorders
CPT/HCPCS: 36415; 80053; 80061; 81001; 82306; 84443; 85025